=== PATIENT | female | born 1945 | race Caucasian/White ===

== ENCOUNTER 2021-07-17 15:16 | Inpatient (IN) | payer MEDICARE ==
[~2021-07-17] VITALS: Ht 160 cm; Wt 88.5 kg
[~2021-07-17 15:16] MED LIST: FLEXERIL10 MG PO; IBUPROFEN400 MG PO
[2021-07-17 17:24] LABS: BASOPHIL 0.3 % (0-2); EOSINOPHIL 0.2 % (0-7); HCT 48.3 % (37.0-47.0); HGB 16.6 g/dl (12.5-16.0); LYMPHOCYTE 12.8 % (15-48); MCH 32.1 pg (25.0-31.0); MCHC 34.4 g/dL (32.0-36.0); MCV 93.4 fL (78.0-100.0); MONOCYTE 6.5 % (0-12); MPV 11.5 fL (6.0-9.5); NEUTROPHIL 79.6 % (41-80); NRBC 0; PLT 256 K/uL (150-400); RBC 5.17 M/uL (4.20-5.40); WBC 18.2 K/uL (4.0-10.5)
[2021-07-17 17:36] LABS: ALBUMIN 3.4 g/dL (3.4-5.0); CREATININE 0.64 mg/dL (0.51-0.95); GLOBULIN (CALCULATION) 4.3 g/dL; POTASSIUM 3.7 mmol/L (3.5-5.1); TOTAL PROTEIN 7.7 g/dL (6.4-8.2)
[2021-07-17 17:43] LABS: LACTIC ACID 1.1 mmol/L (0.4-1.9)
[2021-07-17 17:44] LABS: BILIRUBIN 1+ mg/dL (NEGATIVE); BLOOD TRACE-INTACT Ery/uL (NEGATIVE); CLARITY CLEAR (CLEAR); COLOR YELLOW (YELLOW); GLUCOSE (U) NORMAL (NORMAL); LEUKOCYTES TRACE Leu/uL (NEGATIVE); NITRITE POSITIVE (NEGATIVE); PROTEIN TRACE (LOW) mg/dL (NEGATIVE); SPECIFIC GRAVITY 1.025 (1.001-1.030)
[2021-07-17 17:55] LABS: BACTERIA 3+; MUCOUS TRACE; URINARY WBC 20-50
[2021-07-17 17:57] LABS: TRANSITIONAL EPITHELIAL CELLS RARE
[2021-07-17] MEDS ORDERED: ARTHRITIS PAIN50 GM TOP (23:29)
[2021-07-17] MEDS ORDERED: NORVASC5 MG PO (23:29)
[2021-07-17] MEDS ORDERED: TOPROL XL 25MG25 MG PO (23:30)
[2021-07-17] MEDS ORDERED: SYNTHROID125 MCG PO (23:30)
[2021-07-17] MEDS ORDERED: LOSARTAN-HCTZ1 EAC1 PO (23:30)
[2021-07-17] MEDS ORDERED: CRESTOR10 M1 PO (23:31)
[2021-07-17] MEDS ORDERED: COQ-1030 MG PO (23:38)
[2021-07-17] MEDS ORDERED: MENOPAUSE SUPPO20 MG PO (23:39)
[2021-07-18] MEDS ORDERED: NORCO 5-325 TA1 EACH PO (00:28)
[2021-07-18] MEDS ORDERED: AFRIN15 M1 (00:30)
[2021-07-18 07:14] LABS: BASOPHIL 0.2 % (0-2); EOSINOPHIL 0 % (0-7); HCT 45.3 % (37.0-47.0); LYMPHOCYTE 10.1 % (15-48); MCH 31.4 pg (25.0-31.0); MCHC 33.1 g/dL (32.0-36.0); MCV 94.8 fL (78.0-100.0); MONOCYTE 6.9 % (0-12); MPV 10.9 fL (6.0-9.5); NEUTROPHIL 81.9 % (41-80); NRBC 0; PLT 209 K/uL (150-400); RBC 4.78 M/uL (4.20-5.40); RDW 13.2 % (11.5-14.0); WBC 23.5 K/uL (4.0-10.5)
[2021-07-18 07:31] LABS: BUN/CREAT RATIO (CALC) 27.6 RATIO; CREATININE 0.58 mg/dL (0.51-0.95); POTASSIUM 3.8 mmol/L (3.5-5.1)
--- NOTE | 2021-07-19 00:18 | NUR ---
DESPITE HAVING NOT HAD A BM IN "APPROXIMATELY 1 WEEK" PT DECLINED THE PRN SUPPOSITITORIES AVAILABLE TO HER AT THIS TIME. PT STATES THAT "BATTLING CONSTIPATION" IS HER "NORM" DUE TO PAIN MEDICINE SHE MUST TAKE FOR CHRONIC BACK PAIN.
[2021-07-19 06:52] LABS: BASOPHIL 0.2 % (0-2); EOSINOPHIL 0.1 % (0-7); HCT 43.1 % (37.0-47.0); HGB 14.2 g/dl (12.5-16.0); MCH 31.6 pg (25.0-31.0); MCHC 32.9 g/dL (32.0-36.0); MONOCYTE 6.3 % (0-12); MPV 10.9 fL (6.0-9.5); NEUTROPHIL 81.5 % (41-80); NRBC 0; PLT 192 K/uL (150-400); RBC 4.49 M/uL (4.20-5.40); RDW 13.1 % (11.5-14.0); WBC 22.2 K/uL (4.0-10.5)
[2021-07-19 07:10] LABS: ALBUMIN 2.6 g/dL (3.4-5.0); BUN/CREAT RATIO (CALC) 17.9 RATIO; CREATININE 0.67 mg/dL (0.51-0.95); GLOBULIN (CALCULATION) 4.2 g/dL; POTASSIUM 3.6 mmol/L (3.5-5.1); TOTAL PROTEIN 6.8 g/dL (6.4-8.2)
[2021-07-20 06:00] LABS: BASOPHIL 0.3 % (0-2); EOSINOPHIL 0.7 % (0-7); HCT 38.7 % (37.0-47.0); HGB 12.9 g/dl (12.5-16.0); LYMPHOCYTE 15.7 % (15-48); MCH 31.5 pg (25.0-31.0); MCHC 33.3 g/dL (32.0-36.0); MCV 94.6 fL (78.0-100.0); MONOCYTE 6.5 % (0-12); MPV 10.7 fL (6.0-9.5); NEUTROPHIL 75.6 % (41-80); NRBC 0; PLT 190 K/uL (150-400); RBC 4.09 M/uL (4.20-5.40); RDW 12.7 % (11.5-14.0); WBC 13.4 K/uL (4.0-10.5)
[2021-07-20 06:22] LABS: ALBUMIN 2.2 g/dL (3.4-5.0); BILIRUBIN - TOTAL 0.7 mg/dL (0.2-1.0); BUN/CREAT RATIO (CALC) 21.9 RATIO; CREATININE 0.64 mg/dL (0.51-0.95); GLOBULIN (CALCULATION) 4.3 g/dL; POTASSIUM 3.5 mmol/L (3.5-5.1); TOTAL PROTEIN 6.5 g/dL (6.4-8.2)
--- NOTE | 2021-07-20 16:29 | NUR ---
07/20 Ms. Parham lives alone. She has good family support. She is independent in the home and community. - No discharge planning needs are anticipated.
[2021-07-21 07:17] LABS: BASOPHIL 0.6 % (0-2); EOSINOPHIL 3.1 % (0-7); HCT 40.2 % (37.0-47.0); HGB 13.3 g/dl (12.5-16.0); MCH 31.6 pg (25.0-31.0); MCHC 33.1 g/dL (32.0-36.0); MCV 95.5 fL (78.0-100.0); MONOCYTE 7.3 % (0-12); MPV 10.3 fL (6.0-9.5); NRBC 0; PLT 222 K/uL (150-400); RBC 4.21 M/uL (4.20-5.40); RDW 12.7 % (11.5-14.0); WBC 8.1 K/uL (4.0-10.5)
[2021-07-21 07:22] LABS: LYMPHOCYTE 28.8 % (15-48)
[2021-07-21 08:19] LABS: ALBUMIN 2.4 g/dL (3.4-5.0); BILIRUBIN - TOTAL 0.6 mg/dL (0.2-1.0); BUN/CREAT RATIO (CALC) 23.4 RATIO; CREATININE 0.64 mg/dL (0.51-0.95); GLOBULIN (CALCULATION) 4.2 g/dL; POTASSIUM 3.7 mmol/L (3.5-5.1); TOTAL PROTEIN 6.6 g/dL (6.4-8.2)
[2021-07-21] MEDS ORDERED: DULCOLAX5 MG PO (09:59)
[2021-07-21] MEDS ORDERED: MACROBID100 MG PO (10:00)
== END 2021-07-21 11:42 | disposition home or self-care (01) | DRG 439 ==
LOC: FER 15:16 → FMS 21:14
PROVIDERS: Emergency Medicine; Nurse Practitioner; ADMIT Family Medicine
DX: K85.90 Acute pancreatitis without necrosis or infection, unspecified (principal); N39.0 Urinary tract infection, site not specified; G89.4 Chronic pain syndrome; E03.9 Hypothyroidism, unspecified; Z20.822 Contact with and (suspected) exposure to COVID-19; E78.5 Hyperlipidemia, unspecified; K21.9 Gastro-esophageal reflux disease without esophagitis; I10 Essential (primary) hypertension; K59.03 Drug induced constipation; B96.20 Unspecified Escherichia coli [E. coli] as the cause of diseases classified elsewhere; Z83.3 Family history of diabetes mellitus; Z82.3 Family history of stroke; Z82.49 Family history of ischemic heart disease and other diseases of the circulatory system; Z87.891 Personal history of nicotine dependence; Z79.890 Hormone replacement therapy; Z79.899 Other long term (current) drug therapy; Z98.890 Other specified postprocedural states
CPT/HCPCS: 36415; 71045; 80048; 80053; 80061; 81001; 83605; 83690; 85025; 87040; 87077; 87088; 87186; C9113; J0360; J0696; J1170; J1650; J2270; J2405; J7030; Q9967; U0002

== ENCOUNTER 2021-12-08 06:23 | Day surgery (SDC) | payer MEDICARE ==
[~2021-12-08] VITALS: Ht 160 cm; Wt 92.0 kg
[~2021-12-08 06:23] MED LIST changes: +AFRIN15 M1; +ALLERGY RELIEF25 MG PO; +ARTHRITIS PAIN50 GM TOP; +ASPIRIN EC81 MG PO; +COQ-1030 MG PO; +CRESTOR10 M1 PO; +DULCOLAX5 MG PO; +LOSARTAN-HCTZ1 EAC1 PO; +MACROBID100 MG PO; +MENOPAUSE SUPPO20 MG PO; +NEXIUM20 MG PO; +NORCO 5-325 TA1 EACH PO; +NORVASC5 MG PO; +SYNTHROID125 MCG PO; +TOPROL XL 25MG25 MG PO; +VITAMIN D350 MC3 PO; +ZYRTEC10 M3 PO; +[UNRECOGNIZED DRUG - OTHER] OU
[2021-12-09 06:46] LABS: BASOPHIL 0.2 % (0-2); EOSINOPHIL 0 % (0-7); HCT 36.6 % (37.0-47.0); HGB 12.5 g/dl (12.5-16.0); LYMPHOCYTE 14.5 % (15-48); MCH 31.5 pg (25.0-31.0); MCHC 34.2 g/dL (32.0-36.0); MCV 92.2 fL (78.0-100.0); MONOCYTE 5.3 % (0-12); MPV 11.5 fL (6.0-9.5); NEUTROPHIL 79.4 % (41-80); NRBC 0; PLT 162 K/uL (150-400); RBC 3.97 M/uL (4.20-5.40); WBC 12.3 K/uL (4.0-10.5)
[2021-12-09 07:18] LABS: BUN/CREAT RATIO (CALC) 22.1 RATIO; CREATININE 0.68 mg/dL (0.51-0.95); POTASSIUM 4.1 mmol/L (3.5-5.1)
[2021-12-09] MEDS ORDERED: FEOSOL325 MG PO (08:58)
== END 2021-12-09 11:57 | disposition home or self-care (01) ==
LOC: FAS 06:23 → FMS 09:22 → FAS 09:45
PROVIDERS: Orthopaedic Surgery
DX: M12.811 Other specific arthropathies, not elsewhere classified, right shoulder (principal); I10 Essential (primary) hypertension; E78.5 Hyperlipidemia, unspecified; K21.9 Gastro-esophageal reflux disease without esophagitis; F17.200 Nicotine dependence, unspecified, uncomplicated; Z88.8 Allergy status to other drugs, medicaments and biological substances; Z79.82 Long term (current) use of aspirin; Z79.899 Other long term (current) drug therapy
CPT/HCPCS: 36415; 73020; 80048; 85025; 86850; 86900; 86901; 94010; 94760; 94762; 97162; 97166; 97530-GP; 97535; C1713; C1776; J0171; J0697; J1100; J1885; J2250; J2270; J2370; J2405; J2704; J2710; J2795; J3010; J7120